=== PATIENT | female | born 1950 | race Caucasian/White ===

== ENCOUNTER → 2018-11-14 08:33 | Outpatient (CLI) | payer MEDICARE, BC ==
--- NOTE | 2018-11-18 16:51 | ST ---
PATIENT:KANA SHAHID MEDICAL RECORD: [id number] SEX: F LOCATION:[facility] ORDER #: ADMISSION DATE: 11/14/18 AGE OF PATIENT: 68 REFERRING PHYSICIAN: INTERPRETING PHYSICIAN: ARRON REYNOLDS MD DATE OF SERVICE: 11/14/2018 PROCEDURE: Nuclear Stress Test. INDICATION: Angina, shortness of breath, family history of coronary artery disease, smoker. DESCRIPTION OF PROCEDURE: She was exercised on standard Lexiscan protocol with 29 mCi of sestamibi injected at peak stress, 9 mCi was previously for rest images. FINDINGS: Gated SPECT reveals preserved ejection fraction at 65% with good wall motion and thickening and brightening throughout all segments. SPECT imaging Cardiolite was used as myocardial fusion agent. There is homogeneous uptake throughout all segments at rest and stress with no evidence of inducible ischemia or previous infarction. OVERALL IMPRESSION: 1. This is a normal nuclear stress test with no evidence of inducible ischemia or previous infarction. 2. Gated SPECT reveals a preserved ejection fraction at 65%. In this patient with ongoing symptomatology, the current scan does not suggest the presence of hemodynamically significant coronary artery disease. Evaluate noncardiac etiology of chest pain. TRANSINT:[id number] Voice Confirmation ID: [id number] DOCUMENT ID: [id number] ARRON REYNOLDS MD at 1651 CC: Gunnar SCHRADER [id number] DICTATION DATE: 11/15/18 1619 ASSISTED LIVING CARE MANAGER: 11/16/18 0022 DEP CLI 11/14/18 [facility] [address] [place] [address]
== END | disposition home or self-care (01) ==
LOC: D.HCCARDIO 08:33
PROVIDERS: ATTEND Internal Medicine Interventional Cardiology
DX: I20.9 Angina pectoris, unspecified (principal)

== ENCOUNTER → 2018-11-21 12:50 | Outpatient (CLI) | payer MEDICARE, BC ==
--- NOTE | 2018-11-25 11:14 | EC ---
PATIENT:KANA SHAHID DATE OF SERVICE: 11/21/18 SEX: F MEDICAL RECORD: [id number] DATE OF : 48 LOCATION:[facility] [place] AGE OF PATIENT: 68 ADMISSION DATE: 11/21/18 REFERRING PHYSICIAN: INTERPRETING PHYSICIAN: ARRON MANDUJANO MD ECHOCARDIOGRAM REPORT ECHO CHARGES 4 ECHO COMPLETE Date: 11/21/18 CLINICAL DIAGNOSIS: SOB/BLUE/ANGINA H/O CAD ECHOCARDIOGRAPHIC MEASUREMENTS (adult normal given) AC root (d.<3.7cm) 2.8 cm LV Septum d (<1.2 cm> 0.9 cm Valve Excursion 1.6 cm LV Septum (systole) 1.3 cm Left Atria (s.<4.0cm> 2.5 cm LVPW d(<1.2cm) 1.0 cm RV (d.<2.3cm) 1.9 cm LVPW (sytole) 1.5 cm LV diastole(<5.6CM) 5.1 cm MV E-F(>70mm/sec) cm LV systole 3.4 cm LVOT Diameter 1.7 cm MV exc.(>10mm) cm Est.ejection fraction (50-75%) % DOPPLER: LVIT cm/sec A 41.0 cm/sec E 64.0 cm/sec LA cm/sec RVSP 17.0 mmHg LVOT 94.0 cm/sec AOP1/2T m/s Asc. Ao 128 cm/sec RVOT 74.0 cm/sec RA cm/sec PA 92.0 cm/sec AV Gradient Peak 6.5 mmHg AV Mean 2.8 mmHg AV Area 2.0 cm MV Gradient Peak 2.1 mmHg MV Mean 0.85 mmHg MV Area cm COMMENTS: OP - HC [place]opherman: Perla BONNER ESPARTO Airplane Navigator: 1 Dr. Mandujano TAPE# PACS Pericardial Effusion N DATE OF SERVICE: 11/21/2018 FINDINGS: 1. Left ventricular chamber size is within normal limits. Left ventricular systolic function is normal. Overall ejection fraction is estimated at 55%. 2. Left atrium, right atrium, and right ventricular chamber sizes are within normal limit. 3. Valvular structures have normal structure and motion. 4. Doppler interrogation only reveals mild mitral regurgitation. No other valvular insufficiency or stenosis. Pulmonary systolic pressure is normal, ECHOCARDIOGRAM REPORT [id number] KANA SHAHID estimated at 17 mmHg. 5. No evidence of pericardial effusion or left ventricular thrombus. TRANSINT:[id number] Voice Confirmation ID: [id number] DOCUMENT ID: [id number] ARRON MANDUJANO MD at 1114 CC: [id number] DICTATION DATE: 11/21/18 1607 ENVIRONMENTAL WEB CRAWLER: 11/21/18 1654 DEP CLI 11/21/18 [place] [id number] [place] [id number]
== END | disposition home or self-care (01) ==
LOC: D.HCCARDIO 12:50
PROVIDERS: ATTEND Internal Medicine Interventional Cardiology
DX: R06.02 Shortness of breath (principal)